=== PATIENT | male | born 1955 | race Caucasian/White ===

== ENCOUNTER → 2020-11-18 | Outpatient (CLI) | payer MEDICAID, SELFPAY ==
--- NOTE | 2020-11-18 09:45 | LES_PTH ---
PATIENT: MOISE CONRAD LOC: [facility] U#:[id number] AGE/SX: 65/M ROOM: RE11/18/[address]: Dr. Tao Henriquez MD : [id number] BED: DIS: 11/18/2020 SPEC #: [id number] RECD: 11/18/20 12:11 STATUS: PEE SUSSY #: [id number] RUPERT: 11/18/20 09:[address]: Tao Henriquez DEPT: SURGICAL PATHOLOGY RECD BY: Helga Frey Tissues: Skin of external ear, NOS Procedures: Surgery Specimen Level IV HEADER OPERATION: Excision right ear lesion PRE-OP DIAGNOSIS: Suspicious lesion of ear TISSUE SUBMITTED: Right ear lesion MICROSCOPIC DIAGNOSIS Skin lesion of right ear, biopsy: Verrucoid keratosis, completely excised. Solar elastosis. AM:maria alejandra 11/19/2020 MICROSCOPIC DESCRIPTION Slides are reviewed. GROSS DESCRIPTION Received is one container labeled with the patient's name and not further designated. The specimen consists of an ellipse of light rogers excised skin measuring 1.1 x 0.5 x 0.2 cm. The specimen is inked, bisected totally submitted in one cassette. / AM:maria alejandra 11/18/20 TC:5 CPT: 88399
== END | disposition home or self-care (01) ==
LOC: LABSPEC 13:22
PROVIDERS: Referring Provider Otolaryngology; Visit Provider Otolaryngology
DX: L57.8 Other skin changes due to chronic exposure to nonionizing radiation (principal); W89.9XXA Exposure to unspecified man-made visible and ultraviolet light, initial encounter; Y93.9 Activity, unspecified; Y92.9 Unspecified place or not applicable; Y99.9 Unspecified external cause status
CPT/HCPCS: 88305